=== PATIENT | female | born 2000 | race Caucasian/White ===

== ENCOUNTER 2024-07-20 15:45 | Emergency (ER) | payer SELFPAY ==
[~2024-07-20] VITALS: Ht 149.9 cm; Wt 49.9 kg
[2024-07-20 16:19] VITALS: PULSE 83; RESP 18; TEMP 98.5; O2SAT 100
[2024-07-20 16:59] LABS: BILIRUBIN,URINE NEGATIVE (NEGATIVE); CLARITY,URINE HAZY (CLEAR); COLOR,URINE YELLOW (YELLOW); GLUCOSE, URINE NEGATIVE (NEGATIVE); KETONES,URINE NEGATIVE (NEGATIVE); LEUKOCYTE ESTERASE ,URINE NEGATIVE (NEGATIVE); NITRITE,URINE NEGATIVE (NEGATIVE); PH,URINE 8.5 (5 - 7); PROTEIN,URINE DIPSTICK NEGATIVE (NEGATIVE); URINE UROBILINOGEN 0.2 mg/dL (0.2 - 1)
[2024-07-20 17:01] LABS: AMORPHOUS SEDIMENT,URINE FEW (FEW); BACTERIA,URINE FEW /HPF; EPITHELIAL CELLS,URINE FEW /LPF; PREGNANCY TEST, URINE NEGATIVE (NEGATIVE); WBC,URINE (MAN) 0-5 /HPF (0-5)
== END 2024-07-20 18:15 | disposition home or self-care (01) ==
LOC: ER 15:50
DX: N94.6 Dysmenorrhea, unspecified (principal); R10.30 Lower abdominal pain, unspecified; M54.50 Low back pain, unspecified; D64.9 Anemia, unspecified; J45.909 Unspecified asthma, uncomplicated
CPT/HCPCS: 81001; 81025; 99282

== ENCOUNTER 2024-10-02 18:01 | Emergency (ER) | payer SELFPAY ==
[~2024-10-02] VITALS: Ht 149.9 cm; Wt 48.1 kg
[2024-10-02 19:11] VITALS: PULSE 97; RESP 18; TEMP 97.6; O2SAT 100
== END 2024-10-02 19:12 | disposition home or self-care (01) ==
LOC: FSED 18:05
DX: R42 Dizziness and giddiness (principal); R53.1 Weakness
CPT/HCPCS: 80053; 81003; 81025; 85025; 99283